=== PATIENT | female | born 1970 | race Caucasian/White ===

== ENCOUNTER 2016-09-02 21:45 | Emergency (ER) | payer OTHER ==
--- NOTE | 2016-09-02 23:32 | ED NURSING NOTES ---
Clinical Report - Nurses [facility] [address] [place] [address] 09/02/2016 21:45 Patient: YAHAIRA CENTENO TRIAGE Triage time 2200. Acuity: LEVEL 3. Chief Complaint: ABDOMINAL PAIN. Alert. --22:03 Ashley Jiménez 22:01 09/02/16. BP: 157/95. HR: 91. RR: 18. O2 saturation: 100%. Temp: 97.9 F. Pain level now 11/14. --22:03 Ashley Jiménez. Weight: 97.9 kg. Height/Length: 67 inches. BMI: 33.8. --22:00 Ashley Jiménez. Medications None. --22:02 Ashley Jiménez. Allergies No Known Drug Allergy. --22:02 Ashley Jiménez. History Arrived by private vehicle. Historian: patient. Accompanied by family. This started just prior to arrival. ( sudden onset RLQ abd pain with some radiation to right low back). Treatment RN ACUTE: None. SOCIAL HX: Never smoker. Occasional alcohol use. --22:03 Ashley Jiménez. ADDITIONAL SURGERIES: Appendectomy. --22:02 Ashley Jiménez. Interventions ID band on patient. To treatment room. --22:03 Ashley Jiménez. PHYSICAL ASSESSMENT Ambulatory to room. Patient gowned. GENERAL / NEURO / PSYCH: Alert. Oriented X 4. Appears in pain. HEENT: Mucous membranes are pink. RESPIRATORY: Respirations not labored. Breath sounds within normal limits. CVS: Normal sinus rhythm noted. Capillary refill less than 2 seconds. GI / : Obesity. Abdominal tenderness. SKIN: Skin is warm and dry. --22:03 Ashley Jiménez. NURSING PROGRESS NOTES Reassurance given. Call light placed in reach. Bed placed in lowest position. Brakes of bed on. Patient ready for evaluation- chart flagged. --22:04 Ashley Jiménez 22:11 09/02/2016 Site #1 started via IV in the right antecubital space with an 20g angiocath, with aseptic technique and good blood return; one attempt. Blood drawn: rainbow set. Labeled in the presence of the patient and sent to the lab. Saline lock flushed with 10 mL saline. --22:11 Ashley Jiménez 22:18 09/02/2016 Toradol IVP 30 mg given. via site #1. Allergies verified and confirmed 5 rights. IV patency established. IV site checked: no pain, redness, or swelling. IV flushed thoroughly pre- and post-medication administration. IVP given by RN. --22:18 Ashley Jiménez 22:19 09/02/2016 Zofran (Ondansetron HCl) IVP 8 mg given. via site #1. Allergies verified and confirmed 5 rights. IV patency established. IV site checked: no pain, redness, or swelling. IV flushed thoroughly pre- and post-medication administration. IVP given by RN. --22:19 Ashley Jiménez 22:44 09/02/2016 Dilaudid (HYDROmorphone HCl PF) IVP 1 mg given. via site #1. Allergies verified, confirmed 5 rights and sedative warning given to the patient. IV patency established. IV site checked: no pain, redness, or swelling. IV flushed thoroughly pre- and post-medication administration. IVP given by RN. --22:44 Ashley Jiménez 22:44 09/02/16. BP: 137/95. HR: 80. RR: 18. O2 saturation: 98%. Pain level now 10/14. --22:45 Ashley Jiménez Reassessment after medication administered. She has had no adverse reaction. Overall patient status is the same- she states feels better. --22:45 Ashley Jiménez Care transferred and report received. --23:13 Dipika Whelan RShariNShari 23:17 09/02/16. BP: 134/95. HR: 90. RR: 15. O2 saturation: 100% on room air. Pain level now: 10. --23:17 Dipika Whelan R.N. The patient is resting quietly. ( lights dimmed for pt comfort.). --23:18 Dipika Whelan R.N. 00:01 09/03/2016 Ciprofloxacin (Ciprofloxacin) PO Tablets 500 mg given. Allergies verified and confirmed 5 rights. --00:03 Dipika Whelan R.N. 00:04 09/03/2016 Site #1 removed upon discharge. Catheter intact. Manual pressure and bandage applied. --00:04 Dipika Whelan R.N. DISPOSITION / DISCHARGE Condition at departure: stable. No learning barriers present. Discharge instructions provided and reviewed with the patient. Reviewed medication(s) side effects, precautions, dosing and course information. Prescription(s) given to the patient (Pt states "I wont get the percocet filled, I got some from my dentist and I can't stand the way they make me feel"). Patient verbalized understanding. Written instructions provided in Icelandic. The patient was discharged home. She left the Emergency Department ambulatory and via private vehicle. --00:05 Dipika Whelan R.N. 00:03 09/03/16. BP: 132/89. HR: 88. RR: 15. O2 saturation: 100% on room air. Temp: deferred. Díaz-Doshi pain scale: 6/10. --00:05 Dipika Whelan R.N. Locked/Released at 09/03/2016 0:05 by Dipika Whelan R.N.
--- NOTE | 2016-09-02 23:32 | ED CLINICAL REPORT ---
Clinical Report - Physicians/Mid Levels [facility] [address] [place] [address] 09/02/2016 21:45 Patient: YAHAIRA CENTENO Arrived- By private vehicle. HISTORY OF PRESENT ILLNESS Chief Complaint: ABDOMINAL PAIN. This started today and is still present. It is described as "pain" and it is described as located in the right lower quadrant and radiating (back/flank). (Since earlier today patient has had right-sided abdominal pain radiating to her flank and her back. Patient reports she is status post appendicitis, otherwise previously she has had pain similar to such when she has had nephrolithiasis. Patient denies any trauma or injury to the area. Patient denies fevers or chills. Last measure. Around August 13.). REVIEW OF SYSTEMS No constipation, black stools, difficulty with urination or fever. All systems otherwise negative, except as recorded above. PAST HISTORY Additional Surgeries: Appendectomy. Medications: None. Allergies: No Known Drug Allergy. SOCIAL HISTORY Never smoker. Alcohol use. ADDITIONAL NOTES The nursing notes have been reviewed. PHYSICAL EXAM Vital Signs: 09/02/2016 22:01 BP: 157/95. HR: 91. RR: 18. O2 saturation: 100%. Temp: 97.9 F. Appearance: Alert. Eyes: Eyes normal inspection. Neck: Normal inspection. Neck supple. CVS: Normal heart rate and rhythm. Heart sounds normal. Respiratory: No respiratory distress. Breath sounds normal. Abdomen: Soft. Tenderness in the right side of the abdomen. No organomegaly. No mass. No obesity. Back: Normal inspection. No CVA tenderness. Skin: Skin warm. Normal skin color. Neuro: Oriented X 3. LABS, X-RAYS, AND EKG Abdominal CT: IMPRESSION: 1. Moderate to marked right hydronephrosis and hydroureter secondary to a 9 mm calculus located in the distal third of the right ureter. 2. There is a 0.5 mm nonobstructing calculus in the left kidney. 3. Findings discussed with Elsie Booth, DILCIA. All CT scans at this facility use dose modulation, iterative reconstruction, and/or weight-based dosing when appropriate to reduce radiation dose to as low as reasonably achievable. Electronically Final signed by:Mika Nash MD 09/02/2016 11:29:42 PM. Laboratory Tests: UA-Culture if indicated: (LUZ MARINA: 09/02/2016 22:00) ( [facility] 09/02/2016 22:25) Final results Test Result Flag Units (Reference) URINE COLOR YELLOW URINE APPEARANCE CLEAR URINE GLUCOSE NEGATIVE (NEGATIVE) URINE BILIRUBIN NEGATIVE (NEGATIVE) URINE KETONE NEGATIVE (NEGATIVE) URINE SPECIFIC GRAVITY 1.025 (1.010-1.030) URINE PH 6.5 (5.0-8.0) URINE PROTEIN 2+ (NEGATIVE) URINE UROBILINOGEN 0.2 EU/dL (0.2-1.0) URINE NITRITE NEGATIVE (NEGATIVE) URINE BLOOD 3+ (NEGATIVE) URINE LEUK ESTERASE NEGATIVE (NEGATIVE) URINE RBC 10-25 rbc/hpf (0-1) URINE WBC 0-1 wbc/hpf (0-1) URINE EPITHELIAL CELLS 0-1 EPI/hpf (0-5) URINE BACTERIA MODERATE (2+ TO 3+) (NONE SEEN) URINE COMMENT CULTURE INDICATED URINE CULTURES ARE SET-UP BASED ON THE FOLLOWING CRITERIA:POSITIVE NITRITEPOSITIVE LEUKOCYTE ESTERASEGREATER THAN 10 WHITE BLOOD CELLSMODERATE (2+) OR GREATER BACTERIA Urine: (LUZ MARINA: 09/02/2016 22:00) ( [facility] 09/02/2016 22:20) Final results Test Result Flag Units (Reference) URINE NEGATIVE CBC w Diff: (LUZ MARINA: 09/02/2016 22:00) ( [facility] 09/02/2016 22:18) Final results Test Result Flag Units (Reference) WHITE BLOOD COUNT 16.5 H K/uL (4.5-11.5) RED BLOOD COUNT 5.06 M/uL (4.00-5.20) HEMOGLOBIN 12.9 gm/dL (12.0-16.0) HEMATOCRIT 39.9 % (36.0-46.0) MEAN CELL VOLUME 79 L fL (80-100) MEAN CORPUSCULAR HGB 26 pg (26-34) MEAN CORPUSCULAR HGB CONC 32 g/dL (31-37) RED CELL DISTRIBUTION WIDTH 15.1 H % (11.6-14.8) PLATELET COUNT 342 K/uL (150-400) NEUTROPHIL % 77.5 H % (50-75) LYMPH % 13.1 L % (25-40) MONO % 6.1 % (3-14) EOSINOPHIL % 3.1 % (0-4) BASOPHIL % 0.2 % (0-2) CMP: (LUZ MARINA: 09/02/2016 22:00) ( MsgRcvd 09/02/2016 22:33) Final results Test Result Flag Units (Reference) GLUCOSE 118 H mg/dL (70-110) BUN 16 mg/dL (7-18) CREATININE 0.9 mg/dL (0.6-1.3) Estimated GFR >60 mL/min Estimated GFR- >60 mL/min Note: Persistent reduction over 3 months in eGFR<60 mL/min/1.73 m2 defines CKD. Patients with eGFR values>=60 mL/min/1.73 m2 may also have CKD if evidence ofpersistent proteinuria. Additional information may be foundat www.kidney.org. SODIUM 139 mmol/L (136-145) POTASSIUM 4.3 mmol/L (3.5-5.1) CHLORIDE 105 mmol/L (98-107) CARBON DIOXIDE 24 mmol/L (21-32) CALCIUM 8.9 mg/dL (8.5-10.1) TOTAL PROTEIN 7.6 g/dL (6.4-8.2) ALBUMIN 3.7 g/dL (3.3-5.0) BILIRUBIN, TOTAL 0.2 mg/dL (0.0-1.0) ALKALINE PHOSPHATASE 78 U/L (46-116) AST (SGOT) 18 U/L (15-37) ALT (SGPT) 27 U/L (12-78) LIPASE 133 U/L (73-393) AMYLASE 55 U/L (25-115) . PROGRESS AND PROCEDURES Course of Care: Patient here in the emergency department with signs of right nephrolithiasis, With mild Liberal, and lukocytosis with a small left shift. Will treat with antibiotics. Patient has previously had nephrolithiasis, history cc of clinic. Patient is stable. Patient with no CVA tenderness. I do not think this is septic stone, however she is urged to follow-up over the next 2-3 days, other follow-up urologist given to her as well if she is unable to follow up with her urologist. 09/02/2016 23:17 BP: 134/95. HR: 90. RR: 15. O2 saturation: 100%. Pain level now: 4/10. Patient is stable. Physical exam findings are improved. Symptoms better. Patient/family counseled. Disposition: Discharged. CLINICAL IMPRESSION Ureterolithiasis in the right ureter. INSTRUCTIONS Rest. Drink plenty of fluids. (urology: [phone] Urology: [phone]). Prescription Medications: Zofran (orally disintegrating tablets) 4 mg: take 1 orally every 6 hours for 3 days as needed for nausea. Dispense ten (10). No refill. Substitution is permissible. Cipro 500 mg: take 1 tab orally every 12 hours for 10 days. Dispense twenty (20). No refills. Substitution is permissible. Percocet 5 mg/325 mg: take 1 tablet orally every 6 hours as needed for pain. Dispense twenty (20). No refill. Substitution is permissible. Flomax 0.4 mg: take 1 orally every 24 hours. Dispense ten (10). No refills. Follow-up: Follow up with a specialist. (Electronically signed by Geeta Booth P.A.-C 09/02/2016 23:56)
--- NOTE | 2016-09-02 23:32 | ED ORDER SUMMARY ---
..... Patient: YAHAIRA CENTENO OrderSheet [facility] VisitID: [id number] [address] [place] [address] 45y, F Registration Date/Time: 09/02/2016 ORDER SHEET Weight: 97.9 kg Allergies: No Known Drug Allergy GENERAL ORDERS: CBC w Diff Urgent (22:04 09/02/2016 EBonham per protocol) (Ack 22:09 RKaruga) (22:12 EBonham) CMP Urgent (22:04 09/02/2016 EBonham per protocol) (Ack 22:09 RKaruga) (22:12 EBonham) UA-Culture if indicated Urgent (22:04 09/02/2016 EBonham per protocol) (Ack 22:09 RKaruga) (22:12 EBonham) Amylase Urgent (22:04 09/02/2016 EBonham per protocol) (Ack 22:09 RKaruga) (22:12 EBonham) Lipase Urgent (22:04 09/02/2016 EBonham per protocol) (Ack 22:09 RKaruga) (22:12 EBonham) Urine Urgent (22:04 09/02/2016 EBonham per protocol) (Ack 22:09 RKaruga) (22:12 EBonham) CT Abd/Pel wo Cont Urgent (22:38 09/02/2016 EKoroleva P.A.-C) (Ack 22:41 RKyouga) (23:05 Natasha) MEDICATION ORDERS: Ciprofloxacin PO 500 mg (NOW) (23:31 09/02/2016 EKoroleva P.A.-C) (Ack 23:39 RCollier R.N.) (0:03 RCollier R.N.) IV FLUIDS: IV Saline Lock (22:04 09/02/2016 EBonham per protocol) (22:12 EBonham) Toradol IV 30 mg (NOW) (22:12 09/02/2016 EKoroleva P.A.-C) (22:18 EBonham) Zofran IV 8 mg (NOW) (22:12 09/02/2016 EKoroleva P.A.-C) (22:19 EBonham) Dilaudid IV 1 mg (HIGH ALERT MEDICATION, NOW) (22:38 09/02/2016 Radha Elmore) (22:44 [facility]) ORDER SHEET NOTES: [Electronically signed by Geeta Booth P.A.-C (23:56 09/02/2016)] [Electronically signed by Dipika Whelan R.N. (00:05 09/03/2016)] [Electronically locked/signed by Dipika Whelan R.N. (00:05 09/03/2016)]
--- NOTE | 2016-09-02 23:32 | ED CLINICAL REPORT ---
Clinical Report - Physicians/Mid Levels [facility] [address] [place] [address] 09/02/2016 21:45 Patient: YAHAIRA CENTENO Arrived- By private vehicle. HISTORY OF PRESENT ILLNESS Chief Complaint: ABDOMINAL PAIN. This started today and is still present. It is described as "pain" and it is described as located in the right lower quadrant and radiating (back/flank). (Since earlier today patient has had right-sided abdominal pain radiating to her flank and her back. Patient reports she is status post appendicitis, otherwise previously she has had pain similar to such when she has had nephrolithiasis. Patient denies any trauma or injury to the area. Patient denies fevers or chills. Last measure. Around August 13.). REVIEW OF SYSTEMS No constipation, black stools, difficulty with urination or fever. All systems otherwise negative, except as recorded above. PAST HISTORY Additional Surgeries: Appendectomy. Medications: None. Allergies: No Known Drug Allergy. SOCIAL HISTORY Never smoker. Alcohol use. ADDITIONAL NOTES The nursing notes have been reviewed. PHYSICAL EXAM Vital Signs: 09/02/2016 22:01 BP: 157/95. HR: 91. RR: 18. O2 saturation: 100%. Temp: 97.9 F. Appearance: Alert. Eyes: Eyes normal inspection. Neck: Normal inspection. Neck supple. CVS: Normal heart rate and rhythm. Heart sounds normal. Respiratory: No respiratory distress. Breath sounds normal. Abdomen: Soft. Tenderness in the right side of the abdomen. No organomegaly. No mass. No obesity. Back: Normal inspection. No CVA tenderness. Skin: Skin warm. Normal skin color. Neuro: Oriented X 3. LABS, X-RAYS, AND EKG Abdominal CT: IMPRESSION: 1. Moderate to marked right hydronephrosis and hydroureter secondary to a 9 mm calculus located in the distal third of the right ureter. 2. There is a 0.5 mm nonobstructing calculus in the left kidney. 3. Findings discussed with Elsie Booth, DILCIA. All CT scans at this facility use dose modulation, iterative reconstruction, and/or weight-based dosing when appropriate to reduce radiation dose to as low as reasonably achievable. Electronically Final signed by:Mika Nash MD 09/02/2016 11:29:42 PM. Laboratory Tests: UA-Culture if indicated: (LUZ MARINA: 09/02/2016 22:00) ( [facility] 09/02/2016 22:25) Final results Test Result Flag Units (Reference) URINE COLOR YELLOW URINE APPEARANCE CLEAR URINE GLUCOSE NEGATIVE (NEGATIVE) URINE BILIRUBIN NEGATIVE (NEGATIVE) URINE KETONE NEGATIVE (NEGATIVE) URINE SPECIFIC GRAVITY 1.025 (1.010-1.030) URINE PH 6.5 (5.0-8.0) URINE PROTEIN 2+ (NEGATIVE) URINE UROBILINOGEN 0.2 EU/dL (0.2-1.0) URINE NITRITE NEGATIVE (NEGATIVE) URINE BLOOD 3+ (NEGATIVE) URINE LEUK ESTERASE NEGATIVE (NEGATIVE) URINE RBC 10-25 rbc/hpf (0-1) URINE WBC 0-1 wbc/hpf (0-1) URINE EPITHELIAL CELLS 0-1 EPI/hpf (0-5) URINE BACTERIA MODERATE (2+ TO 3+) (NONE SEEN) URINE COMMENT CULTURE INDICATED URINE CULTURES ARE SET-UP BASED ON THE FOLLOWING CRITERIA:POSITIVE NITRITEPOSITIVE LEUKOCYTE ESTERASEGREATER THAN 10 WHITE BLOOD CELLSMODERATE (2+) OR GREATER BACTERIA Urine: (LUZ MARINA: 09/02/2016 22:00) ( [facility] 09/02/2016 22:20) Final results Test Result Flag Units (Reference) URINE NEGATIVE CBC w Diff: (LUZ MARINA: 09/02/2016 22:00) ( [facility] 09/02/2016 22:18) Final results Test Result Flag Units (Reference) WHITE BLOOD COUNT 16.5 H K/uL (4.5-11.5) RED BLOOD COUNT 5.06 M/uL (4.00-5.20) HEMOGLOBIN 12.9 gm/dL (12.0-16.0) HEMATOCRIT 39.9 % (36.0-46.0) MEAN CELL VOLUME 79 L fL (80-100) MEAN CORPUSCULAR HGB 26 pg (26-34) MEAN CORPUSCULAR HGB CONC 32 g/dL (31-37) RED CELL DISTRIBUTION WIDTH 15.1 H % (11.6-14.8) PLATELET COUNT 342 K/uL (150-400) NEUTROPHIL % 77.5 H % (50-75) LYMPH % 13.1 L % (25-40) MONO % 6.1 % (3-14) EOSINOPHIL % 3.1 % (0-4) BASOPHIL % 0.2 % (0-2) CMP: (LUZ MARINA: 09/02/2016 22:00) ( MsgRcvd 09/02/2016 22:33) Final results Test Result Flag Units (Reference) GLUCOSE 118 H mg/dL (70-110) BUN 16 mg/dL (7-18) CREATININE 0.9 mg/dL (0.6-1.3) Estimated GFR >60 mL/min Estimated GFR- >60 mL/min Note: Persistent reduction over 3 months in eGFR<60 mL/min/1.73 m2 defines CKD. Patients with eGFR values>=60 mL/min/1.73 m2 may also have CKD if evidence ofpersistent proteinuria. Additional information may be foundat www.kidney.org. SODIUM 139 mmol/L (136-145) POTASSIUM 4.3 mmol/L (3.5-5.1) CHLORIDE 105 mmol/L (98-107) CARBON DIOXIDE 24 mmol/L (21-32) CALCIUM 8.9 mg/dL (8.5-10.1) TOTAL PROTEIN 7.6 g/dL (6.4-8.2) ALBUMIN 3.7 g/dL (3.3-5.0) BILIRUBIN, TOTAL 0.2 mg/dL (0.0-1.0) ALKALINE PHOSPHATASE 78 U/L (46-116) AST (SGOT) 18 U/L (15-37) ALT (SGPT) 27 U/L (12-78) LIPASE 133 U/L (73-393) AMYLASE 55 U/L (25-115) . PROGRESS AND PROCEDURES Course of Care: Patient here in the emergency department with signs of right nephrolithiasis, With mild Rochelle, and lukocytosis with a small left shift. Will treat with antibiotics. Patient has previously had nephrolithiasis, history cc of clinic. Patient is stable. Patient with no CVA tenderness. I do not think this is septic stone, however she is urged to follow-up over the next 2-3 days, other follow-up urologist given to her as well if she is unable to follow up with her urologist. 09/02/2016 23:17 BP: 134/95. HR: 90. RR: 15. O2 saturation: 100%. Pain level now: 4/10. Patient is stable. Physical exam findings are improved. Symptoms better. Patient/family counseled. Disposition: Discharged. CLINICAL IMPRESSION Ureterolithiasis in the right ureter. INSTRUCTIONS Rest. Drink plenty of fluids. (urology: [phone] Urology: [phone]). Prescription Medications: Zofran (orally disintegrating tablets) 4 mg: take 1 orally every 6 hours for 3 days as needed for nausea. Dispense ten (10). No refill. Substitution is permissible. Cipro 500 mg: take 1 tab orally every 12 hours for 10 days. Dispense twenty (20). No refills. Substitution is permissible. Percocet 5 mg/325 mg: take 1 tablet orally every 6 hours as needed for pain. Dispense twenty (20). No refill. Substitution is permissible. Flomax 0.4 mg: take 1 orally every 24 hours. Dispense ten (10). No refills. Follow-up: Follow up with a specialist. (Electronically signed by Geeta Booth P.A.-C 09/02/2016 23:56)
--- NOTE | 2016-09-02 23:32 | ED ORDER SUMMARY ---
..... Patient: YAHAIRA CENTENO OrderSheet [facility] VisitID: [id number] [address] [place] [address] 45y, F Registration Date/Time: 09/02/2016 ORDER SHEET Weight: 97.9 kg Allergies: No Known Drug Allergy GENERAL ORDERS: CBC w Diff Urgent (22:04 09/02/2016 EBonham per protocol) (Ack 22:09 RKaruga) (22:12 EBonham) CMP Urgent (22:04 09/02/2016 EBonham per protocol) (Ack 22:09 RKaruga) (22:12 EBonham) UA-Culture if indicated Urgent (22:04 09/02/2016 EBonham per protocol) (Ack 22:09 RKaruga) (22:12 EBonham) Amylase Urgent (22:04 09/02/2016 EBonham per protocol) (Ack 22:09 RKaruga) (22:12 EBonham) Lipase Urgent (22:04 09/02/2016 EBonham per protocol) (Ack 22:09 RKaruga) (22:12 EBonham) Urine Urgent (22:04 09/02/2016 EBonham per protocol) (Ack 22:09 RKaruga) (22:12 EBonham) CT Abd/Pel wo Cont Urgent (22:38 09/02/2016 EKoroleva P.A.-C) (Ack 22:41 RKyouga) (23:05 Natasha) MEDICATION ORDERS: Ciprofloxacin PO 500 mg (NOW) (23:31 09/02/2016 EKoroleva P.A.-C) (Ack 23:39 RCollier R.N.) (0:03 RCollier R.N.) IV FLUIDS: IV Saline Lock (22:04 09/02/2016 EBonham per protocol) (22:12 EBonham) Toradol IV 30 mg (NOW) (22:12 09/02/2016 EKoroleva P.A.-C) (22:18 EBonham) Zofran IV 8 mg (NOW) (22:12 09/02/2016 EKoroleva P.A.-C) (22:19 EBonham) Dilaudid IV 1 mg (HIGH ALERT MEDICATION, NOW) (22:38 09/02/2016 Radha Elmore) (22:[address] [facility]) ORDER SHEET NOTES: [Electronically signed by Geeta Booth P.A.-C (23:56 09/02/2016)] [Electronically signed by Dipika Whelan R.N. (00:05 09/03/2016)] [Electronically locked/signed by Dipika Whelan R.N. (00:05 09/03/2016)]
--- NOTE | 2016-09-02 23:34 | DIAGNOSTIC IMAGING REPORT ---
PROCEDURE: CT ABDOMEN/PELVIS W/O CONTRAST INDICATION: Right flank pain and hematuria. History of kidney stones. Prior appendectomy. TECHNIQUE: Noncontrast axial images with sagittal and coronal reformations. COMPARISON: None. FINDINGS: ABDOMEN: Moderate to marked right hydronephrosis and hydroureter secondary to a to a 9 mm calculus, located in the distal third of the right ureter. There is a 0.5 mm nonobstructing calculus in the left kidney, which is otherwise normal. Moderate ingested material in the stomach. Bowel pattern is otherwise normal. Gallbladder, liver, spleen, pancreas, and aorta are normal. PELVIS: Uterus and adnexal structures are normal. No evidence of free fluid. IMPRESSION: 1. Moderate to marked right hydronephrosis and hydroureter secondary to a 9 mm calculus located in the distal third of the right ureter. 2. There is a 0.5 mm nonobstructing calculus in the left kidney. 3. Findings discussed with DILCIA Patel. All CT scans at this facility use dose modulation, iterative reconstruction, and/or weight-based dosing when appropriate to reduce radiation dose to as low as reasonably achievable.
--- NOTE | 2016-09-03 00:06 | ED MAR SUMMARY ---
..... Medication Administration Record [facility] [address] [place] [address] Patient: YAHAIRA CENTENO Visit ID: [id number] 45y, F Weight: 97.9 kg Height/Length: 67 in BMI: 33.8 ALLERGIES: No Known Drug Allergy Given 22:18 09/02/2016 Ashley Jiménez, Medication Administered: TORADOL [IVP], Dose: 30 mg IVP, Site: #1 right AC. Medication Ordered: Toradol IV 30 mg (NOW). Given 22:19 09/02/2016 Ashley Jiménze, Medication Administered: ZOFRAN [IVP] (ONDANSETRON HCL), Dose: 8 mg IVP, Site: #1 right AC. Medication Ordered: Zofran IV 8 mg (NOW). Given 22:44 09/02/2016 Ashley Jiménez, Medication Administered: DILAUDID [IVP] (HYDROMORPHONE HCL PF), Dose: 1 mg IVP, Site: #1 right AC. Medication Ordered: Dilaudid IV 1 mg (HIGH ALERT MEDICATION, NOW). Given 00:01 09/03/2016 iDpika Whelan R.N. Medication Administered: CIPROFLOXACIN [PO] (CIPROFLOXACIN), Dose: 500 mg Tablets PO. Medication Ordered: Ciprofloxacin PO 500 mg (NOW).
--- NOTE | 2016-09-03 00:06 | ED DISCHARGE INSTRUCTIONS ---
Patient: YAHAIRA CENTENO General Instructions VisitID: [id number] [place] [address] 45y, F Registration Date/Time: 09/02/2016 Ureterolithiasis in the right ureter. INSTRUCTIONS Rest. Drink plenty of fluids. (urology: [phone] Urology: [phone]). Prescription Medications: Zofran (orally disintegrating tablets) 4 mg: take 1 orally every 6 hours for 3 days as needed for nausea. Dispense ten (10). No refill. Substitution is permissible. Cipro 500 mg: take 1 tab orally every 12 hours for 10 days. Dispense twenty (20). No refills. Substitution is permissible. Percocet 5 mg/325 mg: take 1 tablet orally every 6 hours as needed for pain. Dispense twenty (20). No refill. Substitution is permissible. Flomax 0.4 mg: take 1 orally every 24 hours. Dispense ten (10). No refills. Follow-up: Follow up with a specialist. ADDITIONAL INFORMATION Kidney Stone (W/ Colic) The sharp cramping pain and nausea/vomiting that you have is due to a small stone which has formed in the kidney and is now passing down a narrow tube (ureter) on its way to your bladder. Once it reaches your bladder, the pain will stop. The stone may pass in your urine stream in one piece. [The size may be 1/16" to 1/4" (1-6mm)]. Or, the stone may also break up into susan fragments which you may not even notice. Once you have had a kidney stone, you are at risk for developing another one in the future. Home Care: Drink plenty of fluids (at least 8 to 10 glasses of water a day). Most stones will pass on their own, but may take from a few hours to a few days. Sometimes the stone is too large to pass by itself and special methods will have to be used to remove the stone. Each time you urinate, do so in a jar. Pour the urine from the jar through the strainer and into the toilet. Continue doing this until 24 hours after your pain stops. By then, if there was a kidney stone, it should pass from your bladder. Some stones dissolve into sand-like particles and pass right through the strainer. In that case, you wont ever see a stone. Save any stone that you find in the strainer and bring it to your doctor for analysis. It may be possible to prevent certain types of stones from forming. Therefore, it is important to know what kind of stone you have. Try to stay as active as possible since this will help the stone pass. Do not stay in bed unless your pain prevents you from getting up. You may notice a red, pink or brown color to your urine. This is normal while passing a kidney stone. Follow Up with your doctor or return to this facility if the pain lasts more than 48 hours. Get Prompt Medical Attention if any of the following occur: Pain that is not controlled by the medicine given Repeated vomiting or unable to keep down fluids Weakness, dizziness or fainting Fever of 100.4F (38C) or higher, or as directed by your healthcare provider Passage of solid red or brown urine (can't see through it) or urine with lots of blood clots Unable to pass urine for 8 hours and increasing bladder pressure Blood In The Urine Blood in the urine ("hematuria") has many possible causes. If it occurs after an injury (such as a car accident or fall), it is most often a sign of bruising to the kidney or bladder. Common medical causes of blood in the urine include urinary tract infection, kidney stone, inflammation, tumors, or certain other diseases of the kidney or bladder. Menstruation can cause blood to appear in the urine sample, although it is not coming from the urinary tract. If only a trace amount of blood is present, it will show up on the urine test, even though the urine may be yellow and not pink or red. This may occur with any of the above conditions, as well as heavy exercise or high fever. In this case, your doctor may want to repeat the urine test on another day. This will show if the blood is still present. If so, then other tests can be done to find out the cause. Home Care: If your urine does not appear bloody (pink, brown or red) then you do not need to restrict your activity in any way. If you can see blood in your urine, rest and avoid heavy exertion until your next exam. Do not use aspirin or anti-inflammatory medicine like ibuprofen (Motrin, Advil) or naproxen (Naprosyn, Aleve). These thin the blood and may increase bleeding. Follow Up with your doctor or as advised by our staff. If you were injured and had blood in your urine, you should have a repeat urine test in 1-2 days. Contact your doctor or return to this facility for this test. [NOTE: A radiologist will review any X-rays that were taken. We will notify you of any new findings that may affect your care.] Get Prompt Medical Attention if any of the following occur: Bright red blood or blood clots in the urine (if a new symptom) Weakness, dizziness or fainting New groin, abdominal or back pain Fever of 100.4F (38C) or higher, or as directed by your healthcare provider Repeated vomiting Bleeding from nose, gums or easy bruising Oxycodone Hydrochloride, Acetaminophen Oral tablet What is this medicine? ACETAMINOPHEN; OXYCODONE (a set a LIZETH carrie fen; ox i KOE done) is a pain reliever. It is used to treat mild to moderate pain. How should I use this medicine? Take this medicine by mouth with a full glass of water. Follow the directions on the prescription label. Take your medicine at regular intervals. Do not take your medicine more often than directed. Talk to your material man regarding the use of this medicine in children. Special care may be needed. Patients over 65 years old may have a stronger reaction and need a smaller dose. What side effects may I notice from receiving this medicine? Side effects that you should report to your doctor or health transitions rn care coordinator as soon as possible: allergic reactions like skin rash, itching or hives, swelling of the face, lips, or tongue breathing difficulties, wheezing confusion light headedness or fainting spells severe stomach pain yellowing of the skin or the whites of the eyes Side effects that usually do not require medical attention (report to your doctor or health transitions rn care coordinator if they continue or are bothersome): dizziness drowsiness nausea vomiting What may interact with this medicine? alcohol antihistamines barbiturates like amobarbital, butalbital, butabarbital, methohexital, pentobarbital, phenobarbital, thiopental, and secobarbital benztropine drugs for bladder problems like solifenacin, trospium, oxybutynin, tolterodine, hyoscyamine, and methscopolamine drugs for breathing problems like ipratropium and tiotropium drugs for certain stomach or intestine problems like propantheline, homatropine methylbromide, glycopyrrolate, atropine, belladonna, and dicyclomine general anesthetics like etomidate, ketamine, nitrous oxide, propofol, desflurane, enflurane, halothane, isoflurane, and sevoflurane medicines for depression, anxiety, or psychotic disturbances medicines for sleep muscle relaxants naltrexone narcotic medicines (opiates) for pain phenothiazines like perphenazine, thioridazine, chlorpromazine, mesoridazine, fluphenazine, prochlorperazine, promazine, and trifluoperazine scopolamine tramadol trihexyphenidyl What if I miss a dose? If you miss a dose, take it as soon as you can. If it is almost time for your next dose, take only that dose. Do not take double or extra doses. Where should I keep my medicine? Keep out of the reach of children. This medicine can be abused. Keep your medicine in a safe place to protect it from theft. Do not share this medicine with anyone. Selling or giving away this medicine is dangerous and against the law. Store at room temperature between 20 and 25 degrees C (68 and 77 degrees F). Keep container tightly closed. Protect from light. This medicine may cause accidental overdose and if it is taken by other adults, children, or pets. Flush any unused medicine down the toilet to reduce the chance of harm. Do not use the medicine after the expiration date. What should I tell my health care provider before I take this medicine? They need to know if you have any of these conditions: brain tumor Crohn's disease, inflammatory bowel disease, or ulcerative colitis drink more than 3 alcohol containing drinks per day drug abuse or addiction head injury heart or circulation problems kidney disease or problems going to the bathroom liver disease lung disease, asthma, or breathing problems an unusual or allergic reaction to acetaminophen, oxycodone, other opioid analgesics, other medicines, foods, dyes, or preservatives or trying to get breast-feeding What should I watch for while using this medicine? Tell your doctor or health transitions rn care coordinator if your pain does not go away, if it gets worse, or if you have new or a different type of pain. You may develop tolerance to the medicine. Tolerance means that you will need a higher dose of the medication for pain relief. Tolerance is normal and is expected if you take this medicine for a long time. Do not suddenly stop taking your medicine because you may develop a severe reaction. Your body becomes used to the medicine. This does NOT mean you are addicted. Addiction is a behavior related to getting and using a drug for a non-medical reason. If you have pain, you have a medical reason to take pain medicine. Your doctor will tell you how much medicine to take. If your doctor wants you to stop the medicine, the dose will be slowly lowered over time to avoid any side effects. You may get drowsy or dizzy. Do not drive, use machinery, or do anything that needs mental alertness until you know how this medicine affects you. Do not stand or sit up quickly, especially if you are an older patient. This reduces the risk of dizzy or fainting spells. Alcohol may interfere with the effect of this medicine. Avoid alcoholic drinks. There are different types of narcotic medicines (opiates) for pain. If you take more than one type at the same time, you may have more side effects. Give your health care provider a list of all medicines you use. Your doctor will tell you how much medicine to take. Do not take more medicine than directed. Call emergency for help if you have problems breathing. The medicine will cause constipation. Try to have a bowel movement at least every 2 to 3 days. If you do not have a bowel movement for 3 days, call your doctor or health transitions rn care coordinator. Do not take Tylenol (acetaminophen) or medicines that have acetaminophen with this medicine. Too much acetaminophen can be very dangerous. Many nonprescription medicines contain acetaminophen. Always read the labels carefully to avoid taking more acetaminophen. You have been given the following additional information: Kidney Stone W/ Colic Hematuria Oxycodone Hydrochloride, Acetaminophen Oral tablet Rest. (Electronically signed by Geeta Booth P.A.-C 09/02/2016 23:56)
--- NOTE | 2016-09-03 00:06 | ED MED RECONCILIATION SUMMARY ---
Patient: YAHAIRA CENTENO Medication Reconciliation Report [facility] VisitID: [id number] [address] [place] [address] 45y, F Registration Date/Time: 09/02/2016 Weight: 97.9 kg Height/Length: 67 in. BMI: 33.8 ALLERGIES: No Known Drug Allergy The patient's Home Medications are listed below: NONE. The source(s) of the original Home Medication information: Not obtained. The following Medications were given to the patient in the Emergency Department: Toradol [IVP] IVP 30 mg, administered: 09/02/2016 10:18:00 PM Zofran [IVP] IVP 8 mg, administered: 09/02/2016 10:19:00 PM Dilaudid [IVP] IVP 1 mg, administered: 09/02/2016 10:44:00 PM Ciprofloxacin [PO] PO 500 mg, administered: 09/03/2016 12:01:00 AM The following Medications were prescribed to the patient: Zofran (orally disintegrating tablets) 4 mg: take 1 orally every 6 hours for 3 days as needed for nausea. Dispense ten (10). No refill. Substitution is permissible. -- Emmy, Geeta, P.A.-C Cipro 500 mg: take 1 tab orally every 12 hours for 10 days. Dispense twenty (20). No refills. Substitution is permissible. -- Vandana Boothina, P.A.-C Percocet 5 mg/325 mg: take 1 tablet orally every 6 hours as needed for pain. Dispense twenty (20). No refill. Substitution is permissible. -- Geeta Booth, P.A.-C Flomax 0.4 mg: take 1 orally every 24 hours. Dispense ten (10). No refills. -- Geeta Booth, P.A.-C
--- NOTE | 2016-09-03 00:06 | ED MAR SUMMARY ---
..... Medication Administration Record [facility] [address] [place] [address] Patient: YAHAIRA CENTENO Visit ID: [id number] 45y, F Weight: 97.9 kg Height/Length: 67 in BMI: 33.8 ALLERGIES: No Known Drug Allergy Given 22:18 09/02/2016 Ashley Jiménez, Medication Administered: TORADOL [IVP], Dose: 30 mg IVP, Site: #1 right AC. Medication Ordered: Toradol IV 30 mg (NOW). Given 22:19 09/02/2016 Ashley Jiménez, Medication Administered: ZOFRAN [IVP] (ONDANSETRON HCL), Dose: 8 mg IVP, Site: #1 right AC. Medication Ordered: Zofran IV 8 mg (NOW). Given 22:44 09/02/2016 Ashley Jiménez, Medication Administered: DILAUDID [IVP] (HYDROMORPHONE HCL PF), Dose: 1 mg IVP, Site: #1 right AC. Medication Ordered: Dilaudid IV 1 mg (HIGH ALERT MEDICATION, NOW). Given 00:01 09/03/2016 Dipika Whelan R.N. Medication Administered: CIPROFLOXACIN [PO] (CIPROFLOXACIN), Dose: 500 mg Tablets PO. Medication Ordered: Ciprofloxacin PO 500 mg (NOW).
--- NOTE | 2016-09-03 00:06 | ED MED RECONCILIATION SUMMARY ---
Patient: YAHAIRA CENTENO Medication Reconciliation Report [facility] VisitID: [id number] [address] [place] [address] 45y, F Registration Date/Time: 09/02/2016 Weight: 97.9 kg Height/Length: 67 in. BMI: 33.8 ALLERGIES: No Known Drug Allergy The patient's Home Medications are listed below: NONE. The source(s) of the original Home Medication information: Not obtained. The following Medications were given to the patient in the Emergency Department: Toradol [IVP] IVP 30 mg, administered: 09/02/2016 10:18:00 PM Zofran [IVP] IVP 8 mg, administered: 09/02/2016 10:19:00 PM Dilaudid [IVP] IVP 1 mg, administered: 09/02/2016 10:44:00 PM Ciprofloxacin [PO] PO 500 mg, administered: 09/03/2016 12:01:00 AM The following Medications were prescribed to the patient: Zofran (orally disintegrating tablets) 4 mg: take 1 orally every 6 hours for 3 days as needed for nausea. Dispense ten (10). No refill. Substitution is permissible. -- Emmy, Geeta, P.A.-C Cipro 500 mg: take 1 tab orally every 12 hours for 10 days. Dispense twenty (20). No refills. Substitution is permissible. -- Vandana Boothina, P.A.-C Percocet 5 mg/325 mg: take 1 tablet orally every 6 hours as needed for pain. Dispense twenty (20). No refill. Substitution is permissible. -- Geeta Booth, P.A.-C Flomax 0.4 mg: take 1 orally every 24 hours. Dispense ten (10). No refills. -- Geeta Booth, P.A.-C
== END 2016-09-03 | disposition home or self-care (01) ==
LOC: ED SRH 21:45
DX: N20.1 Calculus of ureter (principal)
CPT/HCPCS: 90004; 90100; 90469; 92235; 92530; 93070; 95059